=== PATIENT | male | born 1985 | race Caucasian/White ===

== ENCOUNTER 2024-06-08 12:49 | Outpatient (CLI) | payer OTHER, SELFPAY ==
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
== END 2024-06-08 12:50 | disposition home or self-care (01) ==
LOC: ANHNEURO 12:54
PROVIDERS: Visit Provider Internal Medicine
DX: M54.50 Low back pain, unspecified (principal)
CPT/HCPCS: 95886; 95910